=== PATIENT | female | born 1945 | race African-American/Black ===

== ENCOUNTER 2016-12-14 09:55 | Outpatient (CLI) | payer MEDICARE, BC ==
[2016-12-14 11:42] LABS: ALT (SGPT) 16 U/L (0-55); AST (SGOT) 19 U/L (5-34); Alkaline Phosphatase 121 U/L (40-150); Anion Gap 13 mmol/L (10-20); BUN (Urea Nitrogen) 26 mg/dL (9.8-20.1); Bilirubin, Total 0.5 mg/dL (0.2-1.2); Calc. Creatinine Clearance 0 mL/min (70-130); Calcium 9.4 mg/dL (7.8-10.44); Carbon Dioxide 25 mmol/L (23-31); Estimated GFR-MDRD 58; Globulin 3.6 g/dL (2.4-3.5); Protein, Total 7.4 g/dL (5.8-8.1)
[2016-12-14 14:55] LABS: Chloride 106 mmol/L (98-107)
== END 2016-12-14 09:56 | disposition home or self-care (01) ==
LOC: NAV LAB 09:55
PROVIDERS: ATTEND Internal Medicine Endocrinology, Diabetes & Metabolism
DX: E05.90 Thyrotoxicosis, unspecified without thyrotoxic crisis or storm (principal); I10 Essential (primary) hypertension; Z79.899 Other long term (current) drug therapy
CPT/HCPCS: 36415; 80053; 84439; 84443

== ENCOUNTER 2018-07-27 06:26 | Emergency (ER) | payer MEDICARE, BC ==
[2018-07-27 07:53] LABS: Band 5 % (5-11); Eosinophils 2 % (0-10); Hemoglobin 14.2 g/dL (12.0-16.0); Lymphocytes 9 % (21-51); MDiff Complete? YES; Mean Corpuscular Hemoglobin 29.6 pg (27.0-31.0); Mean Corpuscular Volume 95.6 fL (78.0-98.0); Mean Platelet Volume 7.1 fL (7.4-10.4); Monocytes 8 % (0-10); Neutrophil 76 % (42-75); PLT Morphology Comment Appears Adequate; Platelet Count 175 thou/uL (130-400); RBC Distribution Width 12.4 % (11.5-14.5); RBC Morphology Normal; Red Blood Cell (RBC) Count 4.78 mill/uL (4.20-5.40); White Blood Cell (WBC) Count 7.3 thou/uL (4.8-10.8)
[2018-07-27 07:58] LABS: ALT (SGPT) 24 U/L (8-55); AST (SGOT) 27 U/L (5-34); Alkaline Phosphatase 82 U/L (40-150); Anion Gap 16 mmol/L (10-20); BUN (Urea Nitrogen) 14 mg/dL (9.8-20.1); Bilirubin, Total 0.8 mg/dL (0.2-1.2); Calc. Creatinine Clearance 0 mL/min (70-130); Carbon Dioxide 25 mmol/L (23-31); Chloride 98 mmol/L (98-107); Estimated GFR-MDRD 48; Globulin 4.4 g/dL (2.4-3.5); Glucose 106 mg/dL (83-110); Potassium 3.7 mmol/L (3.5-5.1); Protein, Total 8.4 g/dL (6.0-8.3); Sodium 135 mmol/L (136-145)
[2018-07-27] MEDS ORDERED: Acetaminophen 500 MG TAB ONE (08:00)
[2018-07-27] MEDS ORDERED: cefTRIAXone\\ROCEPHIN 1 GM VIAL ONE (08:00)
[2018-07-27] MEDS ORDERED: Sodium Chloride 0.9% 100 ML ONE (08:08)
--- NOTE | 2018-07-27 09:10 | RAD ---
PA AND LATERAL CHEST: History: Productive cough. Blood. FINDINGS: Comparison is made with exam of 01-05-18. The heart is enlarged. Scarring in the right midlung is again seen. No lobar consolidation, pneumotho races, or pleural effusions are identified. There is no evidence of tyler pulmonary edema. There are degenerative changes in the spine. Surgical clips are seen in the left axilla. IMPRESSION: No acute process. POS: [facility]
== END 2018-07-27 09:00 | disposition home or self-care (01) ==
LOC: NAV ERS 06:26
DX: J20.9 Acute bronchitis, unspecified (principal); I48.91 Unspecified atrial fibrillation; E03.9 Hypothyroidism, unspecified; I10 Essential (primary) hypertension; Z86.718 Personal history of other venous thrombosis and embolism; F41.9 Anxiety disorder, unspecified; Z79.899 Other long term (current) drug therapy
CPT/HCPCS: 36415; 71046; 80053; 83605; 85025; 87040; 87070; 87149; 87205; 93005; 94760; 96365; J0696; J7050

== ENCOUNTER 2023-01-05 14:49 | Emergency (ER) | payer OTHER, MEDICARE, BC | END 2023-01-05 15:35 | disposition home or self-care (01) | LOC: NAV ERS 14:49 | DX: S01.01XA Laceration without foreign body of scalp, initial encounter (principal); I10 Essential (primary) hypertension; I48.91 Unspecified atrial fibrillation; E03.9 Hypothyroidism, unspecified; Z79.01 Long term (current) use of anticoagulants; Z79.899 Other long term (current) drug therapy; W01.0XXA Fall on same level from slipping, tripping and stumbling without subsequent striking against object, initial encounter | CPT/HCPCS: 12002 ==

== ENCOUNTER 2024-08-10 07:27 | Emergency (ER) | payer BC, MEDICARE ==
[2024-08-10 08:40] LABS: ALT (SGPT) 13 U/L (8-55); AST (SGOT) 19 U/L (5-34); Albumin 3.5 g/dL (3.4-4.8); Alkaline Phosphatase 81 U/L (40-110); Anion Gap 16 mmol/L (10-20); BUN (Urea Nitrogen) 22 mg/dL (9.8-20.1); Bilirubin, Total 0.5 mg/dL (0.2-1.2); Calc. Creatinine Clearance 0 mL/min (70-130); Calcium 9.6 mg/dL (7.8-10.44); Carbon Dioxide 21 mmol/L (23-31); Chloride 106 mmol/L (98-107); Estimated GFR 50; Globulin 3.8 g/dL (2.4-3.5); Glucose 86 mg/dL (83-110); Potassium 4.2 mmol/L (3.5-5.1); Protein, Total 7.3 g/dL (5.8-8.1); Sodium 139 mmol/L (136-145)
[2024-08-10 08:47] LABS: Troponin I Less than 0.010 ng/mL (< 0.028)
[2024-08-10 08:54] LABS: Hematocrit 39.5 % (36.0-47.0); Hemoglobin 12.4 g/dL (12.0-16.0); Mean Corpuscular HGB CONC 31.5 g/dL (32.0-36.0); Mean Corpuscular Hemoglobin 30.3 pg (27.0-31.0); Mean Corpuscular Volume 96.1 fl (78.0-98.0); Mean Platelet Volume 7.2 fL (7.4-10.4); Platelet Count 180 10x3/uL (130-400); RBC Distribution Width 12.6 % (11.5-14.5); Red Blood Cell (RBC) Count 4.11 mill/uL (4.20-5.40); White Blood Cell (WBC) Count 3.1 10x3/uL (4.8-10.8)
[2024-08-10 09:01] LABS: MDiff Complete? YES
[2024-08-10] MEDS ORDERED: Meclizine HCl 25 MG TAB ONE (09:38)
[2024-08-10 09:41] LABS: Eosinophils 5 % (0-10); Lymphocytes 25 % (21-51); Metamyelocyte 1 % (0-0); Monocytes 10 % (0-10); Neutrophil 59 % (42-75)
[2024-08-10 09:44] LABS: Anisocytosis SLIGHT = 6-15 cells (100X) (0-5/hpf); Hypochromia SLIGHT = 6-15 cells (100X) (0-5/hpf); Ovalocytes SLIGHT = 2-5 cells (100X) (0-1/hpf); Platelet Adequacy Comment Appears Adequate; Poikilocytosis SLIGHT = 6-15 cells (100X) (0-5/hpf); Tear Drops SLIGHT = 2-5 cells (100X) (0-1/hpf); Toxic Granulation SLIGHT; Vacuoles SLIGHT
== END 2024-08-10 10:30 | disposition home or self-care (01) ==
LOC: NAV ERS 07:27
DX: R42 Dizziness and giddiness (principal); R00.1 Bradycardia, unspecified; I10 Essential (primary) hypertension; I48.91 Unspecified atrial fibrillation; E03.9 Hypothyroidism, unspecified; Z79.01 Long term (current) use of anticoagulants; Z79.899 Other long term (current) drug therapy; Z86.718 Personal history of other venous thrombosis and embolism
CPT/HCPCS: 70450; 71045; 80053; 83880; 84484; 85025; 93005